=== PATIENT | female | born 1980 | race Hispanic/Latino ===

== ENCOUNTER 2019-07-02 16:00 | Outpatient (CLI) | payer BC, MEDICAID, SELFPAY ==
[2019-07-02 16:26] LABS: Basophils Percent Auto 0.5 % (0.2-1.2); Eosinophils Absolute Auto 0.1 K/mm3 (0-0.3); Eosinophils Percent Auto 0.8 % (0-4.4); Hemoglobin 12.6 g/dL (12.0-15.0); Immature Granulocyte Absolute 0.02 K/mm3 (0.00-0.031); Immature Granulocyte Percent A 0.3 % (0-0.5); Lymphocytes Absolute Auto 1.57 K/mm3 (0.9-3.2); Lymphocytes Percent Auto 26.4 % (18.3-44.2); Mean Corpuscular HGB Conc 31.5 g/dl (32-36); Mean Corpuscular Volume 82.6 fl (80-100); Mean Platelet Volume 10.7 fl (7.4-10.4); Monocytes Absolute Auto 0.6 K/mm3 (0.1-0.6); Monocytes Percent Auto 10.8 % (2.6-8.5); Neutrophils Absolute Auto 3.6 K/mm3 (1.3-6.7); Neutrophils Percent Auto 61.2 % (45.5-73.1); Platelet Count Result 203 k/mm3 (150-375); Red Blood Count 4.84 M/mm3 (4.2-5.4); Red Cell Distribution Width 17.4 % (11.5-14.5); White Blood Count 5.9 K/mm3 (4.5-10.0)
== END 2019-07-02 16:01 | disposition home or self-care (01) ==
PROVIDERS: Visit Provider Obstetrics & Gynecology
DX: D64.9 Anemia, unspecified (principal)
CPT/HCPCS: 36415; 85025; 86850; 86900; 86901

== ENCOUNTER 2019-07-05 01:20 | Day surgery (SDC) | payer BC, MEDICAID, SELFPAY ==
[2019-06-20 11:19] VITALS: BMI 22.5
--- NOTE | 2019-07-03 08:18 | PM.IMHP ---
H&P: HPI History of Present Illness Chief complaint: Anemia/ Irregular Excessive Bleeding/ Pelvic Pain Narrative: Naheed Jain is a 39 year old female [place] P4 who is admitted for robotic total vaginal hysterectomy and bilateral salpingectomies. She has had excessive heavy bleeding refractory to medical therapy. She has been on iron she has a very large fibroid uterus. She opts for robotic hysterectomy. She understands this will make her permanently infertile. Risks and benefits reviewed including but not exclusive of , aspiration 1, bleeding, transfusion, perforation injury to bowel, bladder, ureters, or other internal organs with need for open laparotomy and repair. She had all questions answered. She read the [employer] handout entitled hysterectomy. She read the de Phoebe handout. She had all questions answered. She and her asked to proceed Review of Systems Review of Systems: All systems reviewed & are unremarkable except as noted in HPI and below PMFSH Social History Social History Smoking status: Never smoker Alcohol intake: never Meds Home Medications and Allergies Home Medications Medication Instructions Recorded Confirmed Type ferrous sulfate 325 mg PO DAILY 06/20/19 06/20/19 History Allergies Allergy/AdvReac Type Severity Reaction Status Date / Time cheese Allergy Unknown RASH Verified 06/20/19 11:20 milk Allergy Unknown RASH Verified 06/20/19 11:20 Exam Const: General: no acute distress Eyes: General: appearance normal, both eyes and all related structures Neck: Neck: supple and no JVD Thyroid: thyroid normal Resp: Effort & Inspection: normal respiratory effort Auscultation: clear to auscultation bilaterally Cardio: Rate: regular rate Rhythm: regular rhythm GI: Inspection: non-distended GI Palp: Yes Soft to palpation, No Tenderness to palpation present (GI) and No Guarding due to palpation present (GI) Auscultation: normal bowel sounds : General: Yes other ( uterus is approximately 14 weeks in size) Speculum Exam - Cervix: normal appearance of the cervix Bimanual Exam- Adnexa, other: normal adnexae Skin: General skin exam: no rashes or lesions noted Extrem: General: normal to inspection and no edema Psych: Mental Status: mental status grossly normal Affect: normal affect Assessment and Plan Additional Plan impression: Symptomatic uterine fibroids Plan: Robotic total vaginal hysterectomy and bilateral salpingectomy
[2019-07-05] VITALS (16 sets, daily range): BP systolic 107–154; BP diastolic 55–90; PULSE 60–99; RESP 13–16; TEMP 36–37.5; O2SAT 93–100
--- NOTE | 2019-07-05 06:44 | WPDHPUPDATE1 ---
History and Physical Update Update Date/Time: 07/05/19 06:44 History and Physical has been reviewed, including an updated exam of the patient. There are NO changes in the patient's condition. Risks, benefits, and alternatives have been discussed and questions answered. Patient agrees to proceed with procedure.
[2019-07-05] MEDS: LACTATED RINGERS 1,000 ML 30 ML IV CONT ×2 (07:00→08:49)
--- NOTE | 2019-07-05 07:08 | WPDANESEPPF ---
Anes - Initial Pre Proc Eval Procedure: Operation Date: 07/05/19 07:30 Proposed Procedures p Robotic Assisted Total Vaginal Hysterectomy, Bilateral Salpingectomy - Wilfred Poole MD Date/Time: 07/05/19 07:08 Surgeon: Wilfred Poole MD Pre Op Diagnosis: Anemia/ Irregular Excessive Bleeding/ Pelvic Pain Patient Data Age: 39 Gender: F Height: 5 ft 7 in Weight: 64.6 kg Last Vital Signs Temp 36.1 C L 07/05/19 06:45 Pulse 79 07/05/19 06:45 Resp 16 07/05/19 06:45 BP 132/84 07/05/19 06:45 Pulse Ox 100 07/05/19 06:45 Allergies Allergy/AdvReac Type Severity Reaction Status Date / Time cheese Allergy Unknown RASH Verified 07/05/19 06:46 milk Allergy Unknown RASH Verified 07/05/19 06:46 Home Medications Medication Instructions Recorded Confirmed Type ferrous sulfate 325 mg PO DAILY 06/20/19 06/20/19 History hydrocodone-acetaminophen [[place]] 1 tablet PO Q4H PRN #30 tablet 07/05/19 Rx Patient hx anesthesia problems: none Family hx anesthesia problems: none PMFSH Social History Social History Smoking status: Never smoker Alcohol intake: never Anes - Eval Final PreProcedure Day of Procedure 07/05/19 07:08 Patient weight: normal Heart: regular rate and rhythm Lungs: clear to auscultation Airway: Mallampati scale class II Neurological: alert and oriented Last oral intake: >/= 8 hours ASA classification: II Emergent: no Anesthetic plan: proceed Anesthesia type and monitoring: general ETT and standard monitoring Informed Consent: The patient's anesthetic plan and its attendant risks and benefits were discussed with the patient/family/POA. Questions were solicited and answers provided to the satisfaction of the patient/family/POA.
[2019-07-05] MEDS: ceFAZolin 2 GM/D5W 50 ML 2 GM/50 ML BAG IVPB (07:22)
[2019-07-05] MEDS: KETOROLAC 30 MG/ML VIAL (*BKC) IV PUSH (08:30)
--- NOTE | 2019-07-05 08:36 | PM.PROC ---
Procedure Note - Detailed Date of procedure: 07/05/19 Pre-op diagnosis: Anemia/ Irregular Excessive Bleeding/ Pelvic Pain Surgeon: Wilfred Poole MD Postop diagnosis: Anemia/excessive heavy bleeding/pelvic pain/enlarged uterus Procedure: Robotic total vaginal hysterectomy and bilateral salpingectomies EBL: 50cc Anesthesia: General endotracheal Complications: None Findings: Markedly enlarged uterus. Normal-appearing ovaries and tubes Description of procedure: The patient was prepped draped in the normal sterile fashion and placed in the dorsal lithotomy position. Under excellent general endotracheal anesthesia a weighted speculum placed in posterior fornix of the vagina. Anterior lip of the cervix was then grasped with a single-tooth tenaculum. The uterus sounded to 12cm. A 10. KARI and 3. And half cold cup were then placed. The bladder was then drained with a 16 [place] catheter. Gloves were changed and the instruments removed. A supraumbilical incision was made the Veress needle passed in the abdomen. The abdomen was filled [id number]. Five an 8mm trocar was then advanced into the abdomen. Downside visualized no injury seen. The patient placed in Trendelenburg and right and left lateral quadrant incisions made and the 8mm trocars advanced in the abdomen under direct visualization assuring no injury. A right upper quadrant incision made in the 10mm trocar advanced under direct visualization assuring no injury. Robot was docked The drug and alcohol counselor was then attended. The left round ligament was grasped, burned, cut. Anteriorly a bladder flap was formed by dissecting with sharp dissection and cautery the bladder caudally from the uterus and cervix to the opposite round ligament which was clamped, burned, cut. Next the left tube was teased away by using sharp dissection and cautery conserving the left ovary in like fashion the right tube was dissected from the or ovary complex conserving the right ovary. The left utero-ovarian ligament was then skeletonized clamped, burned, cut and brought to the level of the previously cut round ligament. Conserving the right ovary the right utero-ovarian ligament was clamped, burned, cut. Next the left cardinal and broad ligaments were serially skeletonized down the lateral edge of the uterus and cervix serially clamping, cutting, and burning. The uterine vessels were large and tortuous is expected for large uterus. These were individually clamped, burned, cut. In like fashion the cardinal and broad ligaments on the right were serially skeletonized, clamped, burned, cut. Until the uterine vessels could be seen. The uterine vessels then ended individually skeletonized and serially clamped, burned, cut. Excellent blanching the uterus was seen a colpotomy incision was made in the cervix uterus and tubes removed through the vagina. Blood loss estimated at50cc. The vagina was then closed with continuous running 0V lock from lateral edge to lateral edge and back to the midline. Hemostasis was assured [place] derm was placed over the raw spaces. All pedicles appeared dry. The robot was undocked. Trocars were removed after removing gas from the abdomen. The incisions were then closed with 4 O Monocryl and glue. The patient was awakened. She went to recovery in satisfactory condition. All sponge, needle, instrument counts were correct. There were no immediate complications noted.
--- NOTE | 2019-07-05 09:49 | SUR.PHASEI ---
2158; FAMILY UPDATED. REPORT FAXED TO 2ND FLOOR OB
[2019-07-05] MEDS: IBUPROFEN 600 MG TABLET PO ×2 (15:44→23:11)
[2019-07-05] MEDS: SIMETHICONE 80 MG TAB.CHEW PO ×2 (15:46→23:20)
[2019-07-06 05:00] VITALS: BP 105/72; PULSE 83; RESP 13; TEMP 36.8; O2SAT 98
[2019-07-06] MEDS: IBUPROFEN 600 MG TABLET PO ×2 (05:17→11:11)
[2019-07-06 05:45] LABS: Basophils Percent Auto 0.2 % (0.2-1.2); Eosinophils Percent Auto 0.5 % (0-4.4); Hematocrit 36.5 % (37.0-47.0); Hemoglobin 11.7 g/dL (12.0-15.0); Immature Granulocyte Absolute 0.02 K/mm3 (0.00-0.031); Immature Granulocyte Percent A 0.2 % (0-0.5); Lymphocytes Absolute Auto 1.86 K/mm3 (0.9-3.2); Mean Corpuscular HGB Conc 32.1 g/dl (32-36); Mean Corpuscular Hemoglobin 25.9 pg (26-34); Mean Corpuscular Volume 80.8 fl (80-100); Mean Platelet Volume 10.9 fl (7.4-10.4); Monocytes Absolute Auto 0.9 K/mm3 (0.1-0.6); Monocytes Percent Auto 11.2 % (2.6-8.5); Neutrophils Absolute Auto 5.2 K/mm3 (1.3-6.7); Neutrophils Percent Auto 64.9 % (45.5-73.1); Platelet Count Result 184 k/mm3 (150-375); Red Blood Count 4.52 M/mm3 (4.2-5.4); White Blood Count 8.1 K/mm3 (4.5-10.0)
[2019-07-06 08:00] VITALS: BP 120/74; PULSE 78; RESP 18; TEMP 37.2; O2SAT 99
[2019-07-06] MEDS: ENOXAPARIN 40 MG/0.4 ML SYRINGE SUB-Q (08:55)
[2019-07-06] MEDS: SIMETHICONE 80 MG TAB.CHEW PO (08:56)
[2019-07-06] MEDS: DOCUSATE SODIUM 100 MG CAPSULE PO (08:57)
--- NOTE | 2019-07-06 08:58 | PM.DS ---
DS: Diagnosis Admitting Diagnosis Admitting Diagnosis: Symptomatic fibroid uterus Discharge Diagnosis (1) Uterine fibroid: Code(s): D25.9 - Leiomyoma of uterus, unspecified Status: Acute Exam Narrative: Exam Narrative: Pain OK. Tolerating diet. Voiding. AVSS I/O OK ABD soft, nontender, nondistended. Incisions c/d/i. EXT nontender DS: Data Data Completed and Pending Pending studies at discharge: Pending at discharge 07/05/19 08:03 Surgical [PTH] Routine Labs on day of discharge: Labs from last 24 hours 07/06/19 05:05 WBC 8.1 RBC 4.52 Hgb 11.7 L Hct 36.5 L MCV 80.8 MCH 25.9 L MCHC 32.1 RDW 17.0 H Plt Count 184 MPV 10.9 H Immature Gran % (Auto) 0.2 Neut % (Auto) 64.9 Lymph % (Auto) 23.0 [place] % (Auto) 11.2 H Eos % (Auto) 0.5 Baso % (Auto) 0.2 Lymph # (Auto) 1.86 [place] # (Auto) 0.9 H Eos # (Auto) 0.0 Baso # (Auto) 0.0 Abs Immat Gran (auto) 0.02 Absolute Neuts (auto) 5.2 Absolute Nucleated RBC 0.0 Nucleated RBC % 0.0 Discharge Plan Discharge Patient Disposition: Home, Self-Care Discharge Instructions: Call or return if temperature above 100.4? F, increased abdominal pain, increased vaginal bleeding or any new problems. Stand Alone Forms: General Discharge Instructions Follow-up/Referrals: Wilfred Poole MD [Physician] - (2 weeks) Discharge Medications: New hydrocodone-acetaminophen [[place]] 5-325 mg tablet 1 tablet PO Q4H PRN (Reason: pain) Qty: 30 RF: 0 No Action ferrous sulfate 325 mg (65 mg iron) Tablet 325 mg PO DAILY RF: 0 Primary Care Provider: PHYSICIAN NOT ON STAFF,NONSTAFF Attending physician on admission: Wilfred Poole
--- NOTE | 2019-07-06 09:49 | PC.NURSE ---
Discharge instructions given along with prescriptions and when to contact Dr. Kim Best office for follow up appt. Pt. verbalized understanding. No questions or concerns verbalized.
--- NOTE | 2019-07-06 11:25 | WPDANESPN ---
Anes - Prog Note Post-Op Date/Time: 07/06/19 11:25 Cardiovascular status: normal Respiratory status: normal Airway patency: baseline Mental status: baseline Post-Op hydration status: normal Vital Signs: Last Vital Signs Temp 98.9 F 07/06/19 08:00 Pulse 78 07/06/19 08:00 Resp 18 07/06/19 08:00 BP 120/74 07/06/19 08:00 Pulse Ox 99 07/06/19 08:00 I/O: Intake & Output 07/05/19 07/06/19 07/06/19 23:59 07:59 15:59 Intake Total 350 300 Output Total 475 175 250 Balance -125 -175 50 Laboratory Tests 07/06/19 05:05 07/06/19 05:05 WBC 8.1 RBC 4.52 Hgb 11.7 L Hct 36.5 L MCV 80.8 MCH 25.9 L MCHC 32.1 RDW 17.0 H Plt Count 184 MPV 10.9 H Immature Gran % (Auto) 0.2 Neut % (Auto) 64.9 Lymph % (Auto) 23.0 [place] % (Auto) 11.2 H Eos % (Auto) 0.5 Baso % (Auto) 0.2 Lymph # (Auto) 1.86 [place] # (Auto) 0.9 H Eos # (Auto) 0.0 Baso # (Auto) 0.0 Abs Immat Gran (auto) 0.02 Absolute Neuts (auto) 5.2 Absolute Nucleated RBC 0.0 Nucleated RBC % 0.0 Post-procedural complaints: none Patient Feedback: Patient satisfied with anesthetic care.
--- NOTE | 2019-07-08 07:59 | P.DS_ITS ---
DS: Diagnosis Admitting Diagnosis Admitting Diagnosis: Anemia, unspecified DS: Summary Time Spent with Patient Time attestation: Total time spent providing and/or coordinating discharge services: Exam Const: General: no acute distress Eyes: General: appearance normal, both eyes and all related structures Neck: Neck: supple and no JVD Thyroid: thyroid normal Resp: Effort & Inspection: normal respiratory effort Auscultation: clear to auscultation bilaterally Cardio: Rate: regular rate Rhythm: regular rhythm GI: Inspection: non-distended GI Palp: Yes Soft to palpation, No Tenderness to palpation present (GI) and No Guarding due to palpation present (GI) Auscultation: normal bowel sounds : General: Yes bladder normal to palpation External Female Exam: normal external appearance Speculum Exam - Vagina: normal vaginal discharge and No vaginal bleeding Speculum Exam - Cervix: nontender Bimanual exam- vagina & uterus: bladder normal to palpation and No Cervical tenderness present OB/external & speculum: No vaginal bleeding Skin: General skin exam: no rashes or lesions noted Extrem: General: normal to inspection and no edema Psych: Mental Status: mental status grossly normal Affect: normal affect DS: Data Data Completed and Pending Pending studies at discharge: Pending at discharge 07/05/19 08:03 Surgical [PTH] Routine Discharge Plan Discharge Patient Disposition: Home, Self-Care Discharge Instructions: Call or return if temperature above 100.4? F, increased abdominal pain, increased vaginal bleeding or any new problems. Stand Alone Forms: General Discharge Instructions Follow-up/Referrals: Wilfred Poole MD [Physician] - 2 Weeks (2 weeks) Discharge Medications: New hydrocodone-acetaminophen [[place]] 5-325 mg tablet 1 tablet PO Q4H PRN (Reason: pain) Qty: 30 RF: 0 No Action ferrous sulfate 325 mg (65 mg iron) Tablet 325 mg PO DAILY RF: 0 Discharge Date/Time: 07/06/19 11:37
== END 2019-07-06 11:37 | disposition home or self-care (01) ==
LOC: ANHSURGERY 06:46 → ANHOB2 10:01
PROVIDERS: Visit Provider Obstetrics & Gynecology
PROC: (CPT 58552; principal; 2019-07-05 07:30)
DX: D64.9 Anemia, unspecified (principal); N93.9 Abnormal uterine and vaginal bleeding, unspecified; R10.2 Pelvic and perineal pain; N84.0 Polyp of corpus uteri; N80.0 Endometriosis of uterus
CPT/HCPCS: 58552; S2900; 36415; 85025; 88307; 99199; A9270; J0131; J0690; J1100; J1650; J1885; J2250; J2405; J2704; J3010; J7030; J7120

== ENCOUNTER 2019-07-25 10:18 | Day surgery (SDC) | payer BC, MEDICAID, SELFPAY ==
[2019-07-25] VITALS (8 sets, daily range): BP systolic 94–138; BP diastolic 68–99; PULSE 68–101; RESP 11–16; TEMP 36.1–36.4; O2SAT 98–100; BMI 21.9
--- NOTE | 2019-07-25 09:27 | P.HP_ITS ---
H&P: HPI History of Present Illness Chief complaint: vaginal cuff laceration Narrative: Naheed Jain is a 39 year old female status post hysterectomy who presents with vaginal bleeding. She has small spot on the vaginal cough for which she has been seen several times and has continued to persistently bleed. She is PMFSH Social History Social History Smoking status: Never smoker Alcohol intake: never Meds Home Medications and Allergies Home Medications Medication Instructions Recorded Confirmed Type ferrous sulfate 325 mg PO DAILY 06/20/19 07/05/19 History hydrocodone-acetaminophen [[place]] 1 tablet PO Q4H PRN #30 tablet 07/05/19 Rx Allergies Allergy/AdvReac Type Severity Reaction Status Date / Time cheese Allergy Unknown RASH Verified 07/05/19 06:46 milk Allergy Unknown RASH Verified 07/05/19 06:46 Exam Const: General: no acute distress Eyes: General: appearance normal, both eyes and all related structures Neck: Neck: supple and no JVD Thyroid: thyroid normal Resp: Effort & Inspection: normal respiratory effort Auscultation: clear to auscultation bilaterally Cardio: Rate: regular rate Rhythm: regular rhythm GI: Inspection: non-distended GI Palp: Yes Soft to palpation, No Tenderness to palpation present (GI) and No Guarding due to palpation present (GI) Auscultation: normal bowel sounds : General: Yes other ( uterus and cervix are absent. A small bleed is seen on the left at the up) Skin: General skin exam: no rashes or lesions noted Extrem: General: normal to inspection and no edema Psych: Mental Status: mental status grossly normal Affect: normal affect Assessment and Plan Additional Plan impression: Superficial wound bleed Plan: Cauterization and suture repair of vaginal cuff
[2019-07-25] MEDS: LACTATED RINGERS 1,000 ML 30 ML IV CONT (12:40)
--- NOTE | 2019-07-25 12:57 | P.PNAN_ITS ---
Anes - Eval Final PreProcedure Day of Procedure 07/25/19 12:57 Patient weight: normal Heart: regular rate and rhythm Lungs: clear to auscultation Airway: Mallampati scale class II Neurological: alert and oriented Last oral intake: >/= 8 hours ASA classification: II Emergent: no Anesthetic plan: proceed Anesthesia type and monitoring: general LMA and standard monitoring Informed Consent: The patient's anesthetic plan and its attendant risks and be nefits were discussed with the patient/family/POA. Questions were solicited and answers provided to the satisfaction of the patient/family/POA.
[2019-07-25 13:11] LABS: Hematocrit 37.9 % (37.0-47.0); Hemoglobin 12.1 g/dL (12.0-15.0)
--- NOTE | 2019-07-25 13:38 | PM.PROC ---
Procedure Note - Detailed Date of procedure: 07/25/19 Pre-op diagnosis: vaginal cuff laceration Surgeon: Wilfred Poole MD Postop diagnosis vaginal cuff laceration Anesthesia: LMA EBL: 25 cc Complications: Findings: Small bleeding area along the left vaginal cuff Description procedure: Patient was prepped and draped in the normal sterile fashion placed dorsal lithotomy position under excellent general anesthesia a weighted speculum placed in posterior fornix of vagina. A Olivares retractor was used to retract vagina superiorly. A small bleeding area was seen at the right angle of the vaginal cuff. This was swabbed and cleansed 3 [id number] 0 Vicryl were placed with excellent hemostasis. It was watched for 5 minutes and no bleeding was seen. Hematuria was along the vaginal cuff. The patient was awakened. All sponge, needle, instrument counts were correct there were no immediate complications
[2019-07-25] MEDS: IBUPROFEN 400 MG TABLET PO (15:13)
--- NOTE | 2019-07-25 15:37 | SUR.PHASEII ---
1510; PT AWAKE AND ALERT. FAMILY AT BEDSIDE. PT STATES MILD SORENESS TO VAGINA. 3-09/05 PT ASKING FOR IBUPROFEN. DR JOHNSON NOTIFIED. ORDER RECEIVED.
== END 2019-07-25 15:33 | disposition home or self-care (01) ==
PROVIDERS: Visit Provider Obstetrics & Gynecology
PROC: (CPT 59300; principal; 2019-07-25 14:00)
DX: T81.31XA Disruption of external operation (surgical) wound, not elsewhere classified, initial encounter (principal); Y83.8 Other surgical procedures as the cause of abnormal reaction of the patient, or of later complication, without mention of misadventure at the time of the procedure
CPT/HCPCS: 12020; 36415; 85014; 85018; A9270; J2250; J2405; J2704; J3010; J7120

== ENCOUNTER 2022-04-06 22:16 | Emergency (ER) | payer OTHER, MEDICAID, SELFPAY ==
--- NOTE | ~2022-04-06 | XR_ITS ---
EXAMINATION: XR chest 2V Exam Date/Time: 04/06/2022 22:40 PROCESSING ASSISTANT HISTORY: cp, sob, CHEST PAIN LEFT SIDE, TINGLING DOWN ARM Comparison: None available. RESULT: Lines, tubes, and devices: None. Lungs and pleura: Clear. Cardiomediastinal silhouette: Normal. Other: No acute osseous or upper abdominal finding. IMPRESSION: No acute cardiopulmonary process. Reviewed, dictated and finalized at location K. ESSING ASSISTANT
--- NOTE | 2022-04-06 22:17 | ECG_ITS ---
Measurements Intervals [place] Rate: 75 P: 58 NM: 182 QRS: 0 QRSD: 100 T: 42 QT: 377 QTc: 422 Interpretive Statements SINUS RHYTHM INCOMPLETE RIGHT BUNDLE BRANCH BLOCK BORDERLINE T WAVE ABNORMALITY- ANTERIOR LEADS BORDERLINE ECG NO PREVIOUS ECG AVAILABLE FOR COMPARISON Electronically Signed On 04-07-2022 6:41:11 ONLINE PROGRAM COORDINATOR by Kevyn Rapp D.O.
[2022-04-06 22:32] VITALS: BP 184/99; PULSE 84; RESP 14; TEMP 36.9; O2SAT 100
[2022-04-06 22:36] LABS: Basophils Percent Auto 0.5 % (0.2-1.2); Eosinophils Absolute Auto 0.1 K/mm3 (0-0.3); Eosinophils Percent Auto 1.6 % (0-4.4); Hematocrit 39.8 % (37.0-47.0); Hemoglobin 13.6 g/dL (12.0-15.0); Immature Granulocyte Absolute 0.02 K/mm3 (0.00-0.031); Immature Granulocyte Percent A 0.3 % (0-0.5); Lymphocytes Absolute Auto 1.58 K/mm3 (0.9-3.2); Lymphocytes Percent Auto 25.3 % (18.3-44.2); Mean Corpuscular HGB Conc 34.2 g/dl (32-36); Mean Corpuscular Hemoglobin 31.1 pg (26-34); Mean Corpuscular Volume 91.1 fl (80-100); Mean Platelet Volume 10.5 fl (7.4-10.4); Monocytes Absolute Auto 0.6 K/mm3 (0.1-0.6); Monocytes Percent Auto 10.2 % (2.6-8.5); Neutrophils Absolute Auto 3.9 K/mm3 (1.3-6.7); Neutrophils Percent Auto 62.1 % (45.5-73.1); Platelet Count Result 164 k/mm3 (150-375); Red Blood Count 4.37 M/mm3 (4.2-5.4); Red Cell Distribution Width 12.9 % (11.5-14.5); White Blood Count 6.3 K/mm3 (4.5-10.0)
[2022-04-06 22:46] LABS: Alanine Aminotransferase 16 U/L (6-35); Albumin Level 4.4 g/dL (3.5-5.1); Alkaline Phosphatase 65 U/L (38-126); Anion Gap 10 mmol/L (8-16); Aspartate Amino Transferase 19 U/L (14-36); Bilirubin,Total 0.5 mg/dL (0.2-1.3); Blood Urea Nitrogen 17 mg/dL (7-17); Calcium 8.5 mg/dL (8.4-10.2); Carbon Dioxide 26 mmol/L (22-30); Chloride 104 mmol/L (98-107); Estimated CRCL calculation 87 ml/min; Estimated Glomerular Filt Rate > 60; Glucose 117 mg/dL (65-110); Lipase 156 U/L (23-300); Potassium 3.3 mmol/L (3.4-5.0); Sodium 140 mmol/L (137-145)
[2022-04-06 22:47] LABS: INR 1.1; Partial Thromboplastin Time 34.5 SECONDS (22.3-36.8); Prothrombin Time 14.2 Seconds (11.1-14.7)
[2022-04-06 22:58] LABS: Troponin I < 0.012 ng/mL (0.000-0.034)
[2022-04-07] VITALS (7 sets, daily range): BP systolic 151–166; BP diastolic 95–100; PULSE 65–76; RESP 13–21; O2SAT 97–100
--- NOTE | 2022-04-07 00:39 | ED.CHESTPAIN ---
HPI - Chest Pain General Chief Complaint: Chest Pain <JAGRUTI Reyes Last Filed: 04/07/22 02:10> Stated Complaint: chest pain, lt arm pain, sob <JAGRUTI Reyes Last Filed: 04/07/22 02:10> Time Seen by Provider: 04/07/22 00:33 <JAGRUTI Reyes Last Filed: 04/07/22 02:10> Source: patient <JAGRUTI Reyes Last Filed: 04/07/22 02:10> Mode of arrival: ambulatory <JAGRUTI Reyes Last Filed: 04/07/22 02:10> Limitations: no limitations <JAGRUTI Reyes Last Filed: 04/07/22 02:10> History of Present Illness HPI narrative: This is a 42 year old female that presents to the ER for left sided chest pain tonight. Reports she was coughing and felt a sharp left sided chest pain. This has been constant since onset, but improving. Reports the pain is worse with breathing. Reports she felt some pain and paresthesias in the left arm which have now resolved. Denies fever, cough, or lower extremity edema. <JAGRUTI Reyes Last Filed: 04/07/22 02:10> Related Data Home Medications: Home Medications Medication Instructions Recorded Confirmed ferrous sulfate 325 mg (65 mg 325 mg PO DAILY 06/20/19 07/25/19 iron) tablet <JAGRUTI Reyes Last Filed: 04/07/22 02:10> Allergies/Adverse Reactions: Allergies Allergy/AdvReac Type Severity Reaction Status Date / Time cheese Allergy Unknown RASH Verified 07/25/19 13:22 milk Allergy Unknown RASH Verified 07/25/19 13:22 <JAGRUTI Reyes Last Filed: 04/07/22 02:10> Review of Systems Review of Systems: CONSTITUTIONAL: Denies fever CARDIOVASCULAR: Reports chest pain. Denies edema. RESPIRATORY: Reports dyspnea. GASTROINTESTINAL: Denies nausea, vomiting MUSCULOSKELETAL: Reports joint pain, and myalgia. <JAGRUTI Reyes Last Filed: 04/07/22 02:10> All systems reviewed & are unremarkable except as noted in HPI and below <Radha iMllard PA-C - Last Filed: 04/07/22 02:10> PMFSH Past Medical History Medical History: Medical History (Updated 04/07/22 @ 01:13 by Radha Millard PA-C) No active medical problems <Radha Millard PA-C - Last Filed: 04/07/22 02:10> Surgical History Surgical History: Surgical History (Updated 04/07/22 @ 01:11 by Radha Millard PA-C) History of hysterectomy <Radha Millard PA-C - Last Filed: 04/07/22 02:10> Social History Social History: Social History Smoking status: Never smoker Alcohol intake: never <Radha Millard PA-C - Last Filed: 04/07/22 02:10> Exam Narrative: GENERAL: Well-appearing, well-nourished, and in no acute distress. HEAD: Normocephalic, atraumatic. EYES: PERRLA and EOMI. ENT: Nares clear, no rhinorrhea or epistaxis. Mucous membranes moist. Oropharynx without tonsillar hypertrophy exudate or other lesions. NECK: Supple. No adenopathy or masses. CHEST: Clear to auscultation. No respiratory distress. No wheezes rales or rhonchi HEART: Regular rate and rhythm. No murmur heard. Normal peripheral pulses. EXTREMITIES: Normal range of motion. No edema. SKIN: Warm, dry, no rash. NEURO: No focal deficits. Alert and oriented x3. PSYCH: Normal mood and affect <Radha Millard PA-C - Last Filed: 04/07/22 02:10> Course BROOMMAKER/PA Physician Supervision For this patient encounter, I reviewed the BROOMMAKER or PA documentation, treatment plan, and medical decision making <Larry Pal MD - Last Filed: 04/07/22 02:36> Vital Signs Vital signs: Vital Signs Temperature 98.4 F 04/06/22 22:32 Pulse Rate 84 04/06/22 22:32 Respiratory Rate 14 04/06/22 22:32 Blood Pressure 184/99 H 04/06/22 22:32 Pulse Oximetry 100 04/06/22 22:32 Oxygen Delivery Room Air 04/06/22 22:32 Temperature 98.4 F 04/06/22 22:32 Pulse Rate 76 04/07/22 02:30 Respiratory Rate 16 04/07/22 02:30 Blood Pressure 166/100 H
[2022-04-07 01:06] LABS: D Dimer 0.29 ug/mL (<0.48)
[2022-04-07] MEDS: POTASSIUM CHLORIDE 20 MEQ TABLET 40 MEQ PO (01:19)
[2022-04-07 02:05] LABS: Troponin I < 0.012 ng/mL (0.000-0.034)
== END 2022-04-07 02:32 | disposition home or self-care (01) ==
LOC: ANHED 04-07 01:25
PROVIDERS: Physician Assistant; Emergency Provider Emergency Medicine
DX: R07.9 Chest pain, unspecified (principal); Z90.710 Acquired absence of both cervix and uterus; I45.10 Unspecified right bundle-branch block; R94.31 Abnormal electrocardiogram [ECG] [EKG]
CPT/HCPCS: 36415; 71046; 80053; 83690; 84484; 85025; 85380; 85610; 85730; 93005; 99284; A9270